=== PATIENT | female | born 1975 | race African-American/Black ===

== ENCOUNTER 2017-04-10 11:15 | Emergency (ER) | payer MEDICAID, OTHER ==
[~2017-04-10] VITALS: Ht 170.2 cm; Wt 73.0 kg
[2017-04-10] MEDS ORDERED: IBUPROFEN 600MG TABLET PO ONE (14:45)
[2017-04-10] MEDS ORDERED: LIDOCAINE HCL 1% 20ML VIAL (Pyxis) INJ INFIL ONE (15:00)
[2017-04-10 15:09] VITALS: BP 145/79
== END 2017-04-10 15:12 | disposition home or self-care (01) ==
LOC: ER 11:54
DX: R05 Cough (principal); L03.011 Cellulitis of right finger; M79.644 Pain in right finger(s)
CPT/HCPCS: 64450; 99284

== ENCOUNTER 2017-04-14 16:43 | Emergency (ER) | payer OTHER ==
[~2017-04-14] VITALS: Ht 175.3 cm; Wt 74.0 kg
[2017-04-14 16:46] VITALS: BP 143/69
[2017-04-14] MEDS ORDERED: LIDOCAINE HCL 1% 20ML VIAL (Pyxis) INJ MC ONE (21:15)
[2017-04-14] MEDS ORDERED: BACITRACIN ZINC OINT UDPKT TOP ONE (21:15)
[2017-04-14] MEDS ORDERED: SODIUM BICARBONATE 4% (2.4MEQ) 5ML VIAL IV NR (21:17)
== END 2017-04-14 21:55 | disposition home or self-care (01) ==
LOC: ER 17:25
DX: L03.011 Cellulitis of right finger (principal); Z88.8 Allergy status to other drugs, medicaments and biological substances
CPT/HCPCS: 10060; 81025; 87070; 87077; 87205; 99284; J3490; Z7610

== ENCOUNTER 2017-06-03 02:41 | Emergency (ER) | payer OTHER ==
[~2017-06-03] VITALS: Ht 175.3 cm; Wt 76.0 kg
[2017-06-03] MEDS ORDERED: PENICILLIN V POTASSIUM 250MG TABLET PO ONE (06:00)
[2017-06-03 06:10] VITALS: BP 128/87
== END 2017-06-03 06:12 | disposition home or self-care (01) ==
LOC: ER 02:41
DX: J02.0 Streptococcal pharyngitis (principal)
CPT/HCPCS: 81025; 87430; 99283

== ENCOUNTER 2018-09-02 18:16 | Emergency (ER) | payer OTHER ==
[~2018-09-02] VITALS: Ht 175.3 cm; Wt 81.0 kg
[2018-09-02] MEDS ORDERED: IBUPROFEN 600MG TABLET PO ONE (23:45)
[2018-09-03 01:57] VITALS: BP 122/81
== END 2018-09-03 01:59 | disposition home or self-care (01) ==
LOC: ER 18:16
DX: S93.692A Other sprain of left foot, initial encounter (principal); W01.0XXA Fall on same level from slipping, tripping and stumbling without subsequent striking against object, initial encounter; Y93.89 Activity, other specified; Y92.89 Other specified places as the place of occurrence of the external cause; Y99.8 Other external cause status; Z88.8 Allergy status to other drugs, medicaments and biological substances
CPT/HCPCS: 73610; 73630; 81025; 99283